=== PATIENT | female | born 1955 ===

== ENCOUNTER 2023-11-29 05:08 | Day surgery (SDC) | payer OTHER ==
[~2023-11-29 05:08] MED LIST: LIPITOR40 M1; LOPRESSOR25 MG; TIROSINT75 MCG; ZOLOFT50 MG
[2023-11-29] MEDS ORDERED: TYLENOL325 MG PO (08:22)
== END 2023-11-29 13:40 | disposition home or self-care (01) ==
LOC: CIR.AMB 05:08
PROVIDERS: ATTEND Obstetrics & Gynecology Gynecology
DX: N84.0 Polyp of corpus uteri (principal); Z88.6 Allergy status to analgesic agent; Z20.822 Contact with and (suspected) exposure to COVID-19